=== PATIENT | female | born 1995 | race Caucasian/White ===

== ENCOUNTER 2020-06-14 11:19 | Emergency (ER) | payer OTHER ==
[~2020-06-14 11:19] MED LIST: GINGER250 MG PO; PHENERGAN 25 MG25 M1 PO; PHENERGAN25 MG PR; PREDNISONE 10 M10 MG PO; PREDNISONE20 MG PO; PRENATAL VITAM1 EAC8 PO; PRILOSEC OTC20 MG PO; SYNTHROID75 MCG PO; TRAMADOL HCL50 MG PO; ZOFRAN8 MG PO
[2020-06-14 12:14] LABS: HEMOGLOBIN 12.7 gm/dl (12.3-15.3); RED BLOOD COUNT 4.37 M/UL (4.00-5.10); WHITE BLOOD COUNT 9.8 K/UL (4.5-11.0)
[2020-06-14 12:35] LABS: BUN/CREATININE RATIO 11 (0-10)
== END 2020-06-14 16:03 | disposition home or self-care (01) ==
LOC: ER1 11:19
PROVIDERS: Physician Assistant
DX: O20.0 Threatened abortion (principal); Z3A.19 19 weeks gestation of pregnancy; Z88.8 Allergy status to other drugs, medicaments and biological substances
CPT/HCPCS: 76815; 80053; 81001; 85025; 86850; 86900; 86901; 99284; J2790

== ENCOUNTER 2020-07-30 21:33 | Outpatient (CLI) | payer OTHER | END 2020-07-31 01:13 | disposition home or self-care (01) | LOC: GENOP 21:33 | DX: O88.119 Amniotic fluid embolism in pregnancy, unspecified trimester (principal); Z3A.00 Weeks of gestation of pregnancy not specified | CPT/HCPCS: 81001; 83518; 96360; 96361; 96366; J0696 ==

== ENCOUNTER 2020-08-09 19:49 | Outpatient (CLI) | payer OTHER | END 2020-08-09 22:09 | disposition home or self-care (01) | LOC: GENOP 19:49 | DX: O99.891 Other specified diseases and conditions complicating pregnancy (principal); N89.8 Other specified noninflammatory disorders of vagina; M54.5 Low back pain; O99.332 Smoking (tobacco) complicating pregnancy, second trimester; F17.200 Nicotine dependence, unspecified, uncomplicated; O99.282 Endocrine, nutritional and metabolic diseases complicating pregnancy, second trimester; E03.9 Hypothyroidism, unspecified; Z88.8 Allergy status to other drugs, medicaments and biological substances; Z79.899 Other long term (current) drug therapy; Z3A.27 27 weeks gestation of pregnancy | CPT/HCPCS: 81001; 83518; G0463 ==

== ENCOUNTER 2020-08-12 00:31 | Outpatient (CLI) | payer OTHER | END 2020-08-12 02:34 | disposition home or self-care (01) | LOC: GENOP 00:31 | DX: O99.891 Other specified diseases and conditions complicating pregnancy (principal); R10.30 Lower abdominal pain, unspecified; M54.9 Dorsalgia, unspecified; N89.8 Other specified noninflammatory disorders of vagina; O36.8120 Decreased fetal movements, second trimester, not applicable or unspecified; O99.282 Endocrine, nutritional and metabolic diseases complicating pregnancy, second trimester; E03.9 Hypothyroidism, unspecified; O99.332 Smoking (tobacco) complicating pregnancy, second trimester; F17.200 Nicotine dependence, unspecified, uncomplicated; Z3A.27 27 weeks gestation of pregnancy | CPT/HCPCS: 81001; G0463 ==

== ENCOUNTER 2020-08-15 22:11 | Outpatient (CLI) | payer OTHER | END 2020-08-16 00:43 | disposition home or self-care (01) | LOC: GENOP 22:11 | DX: O21.2 Late vomiting of pregnancy (principal); O99.891 Other specified diseases and conditions complicating pregnancy; M54.9 Dorsalgia, unspecified; O99.283 Endocrine, nutritional and metabolic diseases complicating pregnancy, third trimester; E03.9 Hypothyroidism, unspecified; O99.333 Smoking (tobacco) complicating pregnancy, third trimester; F17.200 Nicotine dependence, unspecified, uncomplicated; Z88.8 Allergy status to other drugs, medicaments and biological substances; Z3A.28 28 weeks gestation of pregnancy | CPT/HCPCS: 96360; 96375; J2405; J7121 ==

== ENCOUNTER 2020-08-23 21:12 | Outpatient (CLI) | payer OTHER | END 2020-08-23 23:46 | disposition home or self-care (01) | LOC: GENOP 21:12 | DX: O99.891 Other specified diseases and conditions complicating pregnancy (principal); N89.8 Other specified noninflammatory disorders of vagina; M54.9 Dorsalgia, unspecified; O36.8130 Decreased fetal movements, third trimester, not applicable or unspecified; O99.283 Endocrine, nutritional and metabolic diseases complicating pregnancy, third trimester; E03.9 Hypothyroidism, unspecified; O99.333 Smoking (tobacco) complicating pregnancy, third trimester; F17.200 Nicotine dependence, unspecified, uncomplicated; Z88.8 Allergy status to other drugs, medicaments and biological substances; Z3A.29 29 weeks gestation of pregnancy | CPT/HCPCS: 81001; 82731; 83518; G0463 ==

== ENCOUNTER 2020-09-06 16:11 | Outpatient (CLI) | payer OTHER | END 2020-09-06 18:10 | disposition home or self-care (01) | LOC: GENOP 16:11 | DX: O99.891 Other specified diseases and conditions complicating pregnancy (principal); N89.8 Other specified noninflammatory disorders of vagina; M54.9 Dorsalgia, unspecified; O99.333 Smoking (tobacco) complicating pregnancy, third trimester; F17.200 Nicotine dependence, unspecified, uncomplicated; O99.283 Endocrine, nutritional and metabolic diseases complicating pregnancy, third trimester; E03.9 Hypothyroidism, unspecified; Z88.8 Allergy status to other drugs, medicaments and biological substances; Z3A.31 31 weeks gestation of pregnancy | CPT/HCPCS: 81001; 83518; 87086; G0463 ==

== ENCOUNTER 2020-09-30 19:45 | Outpatient (CLI) | payer OTHER | END 2020-10-01 00:24 | disposition home or self-care (01) | LOC: GENOP 19:45 | DX: O99.891 Other specified diseases and conditions complicating pregnancy (principal); R25.2 Cramp and spasm; R11.0 Nausea; Z3A.35 35 weeks gestation of pregnancy | CPT/HCPCS: 81001; 96360; 96361; 96367; 96374; 96375; C9113; J2405; J2550; J7120 ==

== ENCOUNTER 2020-10-06 22:55 | Outpatient (CLI) | payer OTHER | END 2020-10-07 02:15 | LOC: GENOP 22:55 | DX: O99.891 Other specified diseases and conditions complicating pregnancy (principal); M54.9 Dorsalgia, unspecified; R10.9 Unspecified abdominal pain; R11.0 Nausea; Z3A.36 36 weeks gestation of pregnancy | CPT/HCPCS: 96360; 96361 ==

== ENCOUNTER 2020-10-08 22:30 | Outpatient (CLI) | payer OTHER | END 2020-10-08 23:41 | disposition home or self-care (01) | LOC: GENOP 22:30 | DX: O42.913 Preterm premature rupture of membranes, unspecified as to length of time between rupture and onset of labor, third trimester (principal); Z3A.36 36 weeks gestation of pregnancy | CPT/HCPCS: 59025; 81001; 83518 ==

== ENCOUNTER 2020-10-16 22:03 | Outpatient (CLI) | payer OTHER | END 2020-10-16 23:54 | disposition home or self-care (01) | LOC: GENOP 22:03 | DX: O47.1 False labor at or after 37 completed weeks of gestation (principal); O99.283 Endocrine, nutritional and metabolic diseases complicating pregnancy, third trimester; E03.9 Hypothyroidism, unspecified; Z88.8 Allergy status to other drugs, medicaments and biological substances; Z3A.37 37 weeks gestation of pregnancy | CPT/HCPCS: 59025; 81001; 96360; 96361 ==

== ENCOUNTER 2020-10-20 14:53 | Outpatient (CLI) | payer OTHER | END 2020-10-20 17:07 | disposition home or self-care (01) | LOC: GENOP 14:53 | DX: O99.891 Other specified diseases and conditions complicating pregnancy (principal); R10.2 Pelvic and perineal pain; M54.9 Dorsalgia, unspecified; O99.283 Endocrine, nutritional and metabolic diseases complicating pregnancy, third trimester; E03.9 Hypothyroidism, unspecified; O99.333 Smoking (tobacco) complicating pregnancy, third trimester; F17.200 Nicotine dependence, unspecified, uncomplicated; Z88.8 Allergy status to other drugs, medicaments and biological substances; Z3A.37 37 weeks gestation of pregnancy | CPT/HCPCS: 81001; 83518; 87086; G0463 ==

== ENCOUNTER 2020-10-21 22:18 | Outpatient (CLI) | payer OTHER | END 2020-10-21 23:35 | disposition home or self-care (01) | LOC: GENOP 22:18 | DX: O99.891 Other specified diseases and conditions complicating pregnancy (principal); N89.8 Other specified noninflammatory disorders of vagina; M54.9 Dorsalgia, unspecified; O99.283 Endocrine, nutritional and metabolic diseases complicating pregnancy, third trimester; E03.9 Hypothyroidism, unspecified; O99.333 Smoking (tobacco) complicating pregnancy, third trimester; F17.200 Nicotine dependence, unspecified, uncomplicated; Z88.8 Allergy status to other drugs, medicaments and biological substances; Z3A.37 37 weeks gestation of pregnancy | CPT/HCPCS: 83518; G0463 ==

== ENCOUNTER 2021-02-15 22:52 | Emergency (ER) | payer OTHER ==
[2021-02-16 00:04] LABS: HEMOGLOBIN 13.5 gm/dl (12.3-15.3); RED BLOOD COUNT 4.8 M/UL (4.00-5.10); WHITE BLOOD COUNT 7.9 K/UL (4.5-11.0)
[2021-02-16 00:28] LABS: BUN/CREATININE RATIO 15 (0-10)
== END 2021-02-15 22:58 | disposition left against medical advice (07) ==
LOC: ER1 22:52
PROVIDERS: Physician Assistant Medical
DX: R07.9 Chest pain, unspecified (principal); F41.9 Anxiety disorder, unspecified; Z88.8 Allergy status to other drugs, medicaments and biological substances
CPT/HCPCS: 71045; 80053; 82550; 82553; 83874; 84484; 85025; 99283

== ENCOUNTER 2021-04-01 04:02 | Emergency (ER) | payer OTHER ==
[2021-04-01] MEDS ORDERED: MEDROL DOSEPAK 24 MG PO (05:12)
[2021-04-01] MEDS ORDERED: PEPCID40 MG PO (05:12)
[2021-04-01] MEDS ORDERED: BENADRYL 50MG C50 MG PO (05:12)
== END 2021-04-01 05:25 | disposition home or self-care (01) ==
LOC: ER1 04:02
DX: L50.0 Allergic urticaria (principal); Z88.8 Allergy status to other drugs, medicaments and biological substances
CPT/HCPCS: 96374; 96375; 99282; J1200; J2930

== ENCOUNTER 2021-06-15 18:46 | Emergency (ER) | payer OTHER ==
[~2021-06-15 18:46] MED LIST changes: +BENADRYL 50MG C50 MG PO; +MEDROL DOSEPAK 24 MG PO; +PEPCID40 MG PO
[2021-06-15 19:47] LABS: HEMOGLOBIN 14.2 gm/dl (12.3-15.3); RED BLOOD COUNT 4.92 M/UL (4.00-5.10); WHITE BLOOD COUNT 9.2 K/UL (4.5-11.0)
[2021-06-15 20:06] LABS: BUN/CREATININE RATIO 16 (0-10)
[2021-06-15] MEDS ORDERED: OMNICEF 300 MG300 MG PO (21:00)
== END 2021-06-15 21:08 | disposition home or self-care (01) ==
LOC: ER1 18:46
PROVIDERS: Student in an Organized Health Care Education/Training Program
DX: N39.0 Urinary tract infection, site not specified (principal); Z88.8 Allergy status to other drugs, medicaments and biological substances
CPT/HCPCS: 80053; 81001; 84703; 85025; 99284

== ENCOUNTER 2021-11-01 15:43 | Emergency (ER) | payer OTHER ==
[~2021-11-01 15:43] MED LIST changes: +OMNICEF 300 MG300 MG PO
== END 2021-11-01 18:36 | disposition left against medical advice (07) ==
LOC: ER1 15:43
DX: Z53.21 Procedure and treatment not carried out due to patient leaving prior to being seen by health care provider (principal)